=== PATIENT | female | born 1990 | race African-American/Black ===

== ENCOUNTER 2017-04-21 18:59 | Emergency (ER) | payer MEDICAID ==
[~2017-04-21] VITALS: Ht 170.2 cm; Wt 70.0 kg
[~2017-04-21 18:59] MED LIST: DIVAL250 PO; PREN-88 PO
[2017-04-21 19:02] VITALS: BP 121/71
== END 2017-04-21 22:13 | disposition left against medical advice (07) ==
LOC: ER 19:22
DX: Z53.21 Procedure and treatment not carried out due to patient leaving prior to being seen by health care provider (principal)

== ENCOUNTER 2018-05-07 12:18 | Emergency (ER) | payer SELFPAY ==
[~2018-05-07] VITALS: Ht 160 cm; Wt 79.0 kg
[2018-05-07 12:29] VITALS: BP 123/87
== END 2018-05-07 14:59 | disposition left against medical advice (07) ==
LOC: ER 12:18
DX: Z53.21 Procedure and treatment not carried out due to patient leaving prior to being seen by health care provider (principal)

== ENCOUNTER 2021-01-13 12:00 | Observation (INO) | payer MEDICAID ==
[~2021-01-13] VITALS: Ht 160 cm; Wt 81.6 kg
[2021-01-13 13:36] LABS: CLARITY URINE CLOUDY (CLEAR); COLOR URINE YELLOW (YELLOW); KETONES URINE NEGATIVE (NEGATIVE); LEUKOCYTE ESTERASE URINE 2+ (NEGATIVE); NITRITE URINE NEGATIVE (NEGATIVE); OCCULT BLOOD URINE NEGATIVE (NEGATIVE); PROTEIN URINE NEGATIVE (NEGATIVE); SPECIFIC GRAVITY URINE 1.021 (1.005-1.030)
== END 2021-01-13 19:16 | disposition home or self-care (01) ==
LOC: 8 EST LDRP 12:00
PROVIDERS: ADMIT Obstetrics & Gynecology; ATTEND Obstetrics & Gynecology
DX: O62.9 Abnormality of forces of labor, unspecified (principal); O26.893 Other specified pregnancy related conditions, third trimester; R10.9 Unspecified abdominal pain; Z3A.31 31 weeks gestation of pregnancy
CPT/HCPCS: 59025; 76805; 76818; 81003; 99281; G0378

== ENCOUNTER 2024-06-03 12:16 | Emergency (ER) | payer MEDICAID, OTHER ==
[~2024-06-03] VITALS: Ht 165.1 cm; Wt 65.0 kg
[~2024-06-03 12:16] MED LIST changes: -DIVAL250 PO
[2024-06-03 12:21] VITALS: BP 127/82; PULSE 82; RESP 18; TEMP 98.6; O2SAT 98
== END 2024-06-03 15:18 | disposition home or self-care (01) ==
LOC: ER 12:16
DX: S09.90XA Unspecified injury of head, initial encounter (principal); J45.909 Unspecified asthma, uncomplicated; F31.9 Bipolar disorder, unspecified; F03.90 Unspecified dementia, unspecified severity, without behavioral disturbance, psychotic disturbance, mood disturbance, and anxiety; Z88.8 Allergy status to other drugs, medicaments and biological substances; X58.XXXA Exposure to other specified factors, initial encounter; Y93.89 Activity, other specified; Y92.89 Other specified places as the place of occurrence of the external cause; Y99.8 Other external cause status
CPT/HCPCS: 73030; 81025; 99284